=== PATIENT | male | born 1970 ===

== ENCOUNTER 2017-02-25 07:25 | Day surgery (SDC) | payer OTHER ==
[2017-02-23 09:39] VITALS: BMI 25.6
[2017-02-25] MEDS ORDERED: Midazolam 2 MG/2 ML VIAL ONE (09:50)
[2017-02-25] MEDS ORDERED: Propofol 10 mg/ml Inj (20 ML) ONE (09:50)
[2017-02-25] MEDS ORDERED: cefTRIAXone (Rocephin) 1 gm Inj ONE (10:26)
[2017-02-25] MEDS ORDERED: Iohexol 240 200 ML IJ ONE ×2 (10:28)
[2017-02-25] MEDS ORDERED: Lidocaine 2% MPF (5 ml) Inj ONE (10:35)
[2017-02-25] MEDS ORDERED: Lactated Ringer's 1,000 ML IV ONE ×2 (10:36)
[2017-02-25] MEDS ORDERED: cefTRIAXone (Rocephin) 1 gm Inj IVPB ONE (10:45)
--- NOTE | 2017-02-25 11:56 | OP ---
PROCEDURE DATE: 02/25/2017 PREOPERATIVE DIAGNOSES: Right flank pain with renal colic. POSTOPERATIVE DIAGNOSES: Right flank pain with renal colic. PROCEDURE PERFORMED: Cystoscopy with diagnostic ureteroscopy. The patient was placed on the operating table in dorsal lithotomy position, given general anesthesia. The area of the groin was draped and prepped in a sterile manner. Using a ureteroscope, I entered into the bladder atraumatically. The bladder itself appeared normal. There was no evidence of any s tones within the bladder. At this time, I identified the right ureteral orifice and over a floppy ti p guidewire, I advanced the ureteroscope all the way up to the level of the renal pelvis. I looked i nto the middle and upper pole renal calices, did not see any stones. There was no hyperemia of the u reter and ureteropelvic junction. I then, under direct vision, again looked back as I was retracting the ureteroscope and I did not see any stones or stricture in this area. Once this was done, the in strumentation was removed. The patient was taken from the operating room in good condition. Henri Hanna MD cc: 48 TT: 02/25/2017 11:55:46 en
--- NOTE | 2017-02-25 12:06 | DS ---
The patient was admitted today for elective ureteroscopy diagnostic evaluation for right renal colic. He underwent the procedure uneventfully. Postoperatively, the patient is stable. He will be disch arged home. A prescription for Ultracet and Naprosyn was given. Follow up in the office next week marie cristina. Henri Hanna MD cc: 48 TT: 02/25/2017 12:05:00 mn
[2017-02-25 12:26] VITALS: RESP 18
[2017-02-25 13:23] VITALS: BP 142/94; PULSE 76; TEMP 98.4; O2SAT 98
--- NOTE | 2017-02-25 17:50 | RAD ---
PROCEDURE: Fluoroscopy up to 1 hr. HISTORY: CYSTOSCOPY COMPARISON: None TECHNIQUE: Standard protocol for this study/examination. FINDINGS: Submitted images from the current procedure: 1.0 IMPRESSION: Less than 1 hr fluoroscopic time utilized during performance of the procedure.
== END 2017-02-25 14:00 | disposition home or self-care (01) ==
LOC: H.OPSURG 07:25
PROVIDERS: ATTEND Urology
DX: N23 Unspecified renal colic (principal)

== ENCOUNTER 2018-09-22 00:34 | Emergency (ER) | payer OTHER ==
[2018-09-22 00:35] VITALS: BMI 25.6
[2018-09-22] MEDS ORDERED: Sodium Chloride 0.9% 1,000 ML IV STA ×2 (01:13→02:53)
--- NOTE | 2018-09-22 01:29 | ED PDOC ---
HPI: Abdomen Time Seen by Provider: 09/22/18 01:01 Chief Complaint (Nursing): Back Pain Chief Complaint (Provider): abdominal pain History Per: Patient, [employer] (Mika Ruff ED tech/certified teacher resource) History/Exam Limitations: no limitations Onset/Duration Of Symptoms: Days (4) Current Symptoms Are (Timing): Still Present Last Bowel Movement: Today Additional Complaint(s): 48 y/o male presents for evaluation of abdominal pain radiating to back x 1 month, worse x 2 days. Patient seen for pain last week and sent for out patient CT scan; states he followed up with the doctor yesterday and was told the CT results show bilateral stones in the kidney which shouldn't be the reason for his pain so advised him to make an appointment with a surgeon for further evaluation and possible laparscopy. Patient presents to ED due to worsening pain and nausea. Denies fever, nausea/vomiting, chest pain, shortness of breath, palpitations, changes in bowel movements, dysuria, hematuria. Past Medical History Reviewed: Historical Data, Nursing Documentation, Vital Signs Vital Signs: Last Vital Signs Temp 98.1 F 09/22/18 00:49 Pulse 67 09/22/18 00:49 Resp 16 09/22/18 00:49 BP 135/87 09/22/18 00:49 Pulse Ox 100 09/22/18 00:49 - Medical History PMH: Kidney Stones Denies: Chronic Kidney Disease - Surgical History Surgical History: Cholecystectomy - Family History Family History: States: No Known Family Hx - Home Medications Home Medications: Ambulatory Orders Medication Instructions Recorded Ciprofloxacin [Cipro] 500 mg PO BID 02/25/17 Naproxen [Naprosyn] 500 mg PO BID 02/25/17 Tamsulosin [Flomax] 0.4 mg PO DAILY 02/25/17 Tramadol HCl [Ultram] 50 mg PO Q8 PRN 02/25/17 Ciprofloxacin HCl [Cipro] 500 mg PO BID #9 tab 09/22/18 Naproxen [Naprosyn] 500 mg PO Q12 PRN #20 tablet 09/22/18 Ondansetron ODT [Zofran ODT] 4 mg PO Q8 PRN #10 odt 09/22/18 Tamsulosin [Flomax] 0.4 mg PO DAILY #10 cap 09/22/18 oxyCODONE/Acetaminophen [Percocet 1 ea PO Q6 PRN #10 tab 09/22/18 5/325 mg Tab] - Allergies Allergies/Adverse Reactions: Allergies Allergy/AdvReac Type Severity Reaction Status Date / Time No Known Allergies Allergy Verified 09/22/18 00:49 Review of Systems ROS Statement: Except As Marked, All Systems Reviewed And Found Negative Gastrointestinal: Positive for: Abdominal Pain Musculoskeletal: Positive for: Back Pain Physical Exam - Reviewed Nursing Documentation Reviewed: Yes Vital Signs Reviewed: Yes - Physical Exam Appears: Positive for: Well, Non-toxic, In Acute Distress Head Exam: Positive for: ATRAUMATIC, NORMAL INSPECTION, NORMOCEPHALIC Skin: Positive for: Normal Color Eye Exam: Positive for: Normal appearance ENT: Positive for: Normal ENT Inspection Cardiovascular/Chest: Positive for: Regular Rate, Rhythm Respiratory: Positive for: Normal Breath Sounds Gastrointestinal/Abdominal: Positive for: Bowel Sounds, Soft, Tenderness (LLQ, left flank, RLQ, right flank) Back: Positive for: L CVA Tenderness, R CVA Tenderness Extremity: Positive for: Normal ROM Neurologic/Psych: Positive for: Alert, Oriented (x3) - Laboratory Results Result Diagrams: 09/22/18 01:40 09/22/18 01:40 - ECG O2 Sat by Pulse Oximetry: 100 - Progress ED Course And Treament: -cbc -cmp -pt/ptt -urinalysis -urine c&S -IV NS bolus -IV toradol -ct renal protocol CT SCAN OF THE ABDOMEN AND PELVIS WITHOUT ORAL OR IV CONTRAST. CLINICAL INDICATION: Abdominal, bilateral flank pain. TECHNIQUE: Axial and reformatted sagittal and coronal images of the abdomen pelvis obtained without IV contrast administration. COMPARISON: None. FINDINGS: The visualized lung bases are unremarkable. Normal unenhanced liver. Nondilated extrahepatic biliary system. Normal unenhanced spleen. Normal pancreas. Normal bilateral adrenal glands. Bilateral nonobstructing renal stones ranging in size between 3 and 7 mm. Normal size of the right kidney. There is no right renal mass. There is no right hydronephrosis. Normal visualized right ureter. Normal size of the left kidney. There is no left renal mass. 4.2 mm obstructing stone the left ureter at L3 level. Normal visualized stomach. Normal small intestine. Uncomplicated diverticulosis of moderate amount of fecal residue in the colon. The appendix is visualized and appears normal. There is no demonstrated peritoneal fluid. Normal abdominal aorta. Normal inferior vena cava. Normal retroperitoneum. Moderate prostatomegaly. Normal urinary bladder. There is no pelvic mass lesion or lymphadenopathy. There is no pelvic fluid. Normal abdominal wall. Normal osseous structures. IMPRESSION: Bilateral nephrolithiasis. Left ureterolithiasis On re-eval, patient sleeping; upon awakening states pain resolved. Flomax PO, second NS bolus ordered Tolerating PO Patient educated on findings, discharged with rx Percocet, Naproxen, Zofran, Flomax, Cipro Advised follow up with Urology Strainer given with instructions on use Return precautions given Disposition - Clinical Impression Clinical Impression: Ureteral calculus, left, Bilateral kidney stones - Patient ED Disposition Is Patient to be Admitted: No Counseled Patient/Family Regarding: Studies Performed, Diagnosis, Need For Follo wup, Rx Given - Disposition Referrals: Henri Hanna MD [Medical Doctor] - Disposition: Routine/Home Disposition Time: 05:30 Condition: IMPROVED Prescriptions: Ciprofloxacin HCl [Cipro] 500 mg PO BID #9 tab Naproxen [Naprosyn] 500 mg PO Q12 PRN #20 tablet PRN Reason: Pain, Moderate (4-7) Ondansetron ODT [Zofran ODT] 4 mg PO Q8 PRN #10 odt PRN Reason: Nausea/Vomiting oxyCODONE/Acetaminophen [Percocet 5/325 mg Tab] 1 ea PO Q6 PRN #10 tab PRN Reason: Pain, Severe (8-10) Tamsulosin [Flomax] 0.4 mg PO DAILY #10 cap Instructions: Kidney Stones in Adults, Renal Colic Forms: [employer] (Uzbek) Print Language: FRISIAN
[2018-09-22 01:54] LABS: BASO # 0.1 K/uL (0.0-0.2); BASO % 1.2 % (0.0-2.0); EOS # 0.1 K/uL (0.0-0.7); EOS % 1.8 % (0.0-4.0); HEMOGLOBIN 17.6 g/dL (12.0-18.0); LYMPH # 0.8 K/uL (1.0-4.3); MEAN CELL VOLUME 88.9 fl (80.0-94.0); MEAN CORPUSCULAR HEMOGLOBIN 30.2 pg (27.0-31.0); MEAN PLATELET VOLUME 8.1 fl (7.2-11.7); MONO # 0.4 K/uL (0.0-0.8); MONO % 6.6 % (0.0-10.0); NEUT # 4.3 K/uL (1.8-7.0); NEUT % 75.4 % (50.0-75.0); RBC 5.84 Mil/uL (4.40-5.90); RED CELL DISTRIBUTION WIDTH 12.9 % (11.5-14.5); WHITE BLOOD COUNT 5.7 K/uL (4.8-10.8)
[2018-09-22 02:00] LABS: ALB/GLOB RATIO 1.3 (1.0-2.1); ALBUMIN 4.7 g/dL (3.5-5.0); ALT/SGPT 43 U/L (21-72); AST/SGOT 31 U/L (17-59); BLOOD UREA NITROGEN 14 mg/dl (9-20); CALCIUM 10.2 mg/dL (8.4-10.2); GFR NON-AFRICAN AMERICAN > 60; LIPASE 95 U/L (23-300)
[2018-09-22 02:01] LABS: PROTHROMBIN TIME 11.8 Seconds (9.8-13.1)
[2018-09-22 03:49] LABS: URINE BILIRUBIN NEGATIVE (NEGATIVE); URINE BLOOD MODERATE (NEGATIVE); URINE CLARITY CLEAR (Clear); URINE COLOR STRAW (YELLOW); URINE GLUCOSE (UA) NEG (Normal); URINE LEUKOCYTE ESTERASE NEG Leu/uL (Negative); URINE PROTEIN NEGATIVE (NEGATIVE); URINE UROBILINOGEN 0.2-1.0 mg/dL (0.2-1.0)
[2018-09-22 07:14] VITALS: BP 126/73; PULSE 81; RESP 17; TEMP 98.3
--- NOTE | 2018-09-22 11:14 | CT ---
Date of service: 09/22/2018 PROCEDURE: CT Abdomen and Pelvis without intravenous contrast HISTORY: Abdominal and bilateral flank pain. COMPARISON: None. TECHNIQUE: Unenhanced. Neither IV nor oral contrast administered Radiation dose: Total exam DLP = 486.50 mGy-cm. This CT exam was performed using one or more of the following dose reduction techniques: Automated exposure control, adjustment of the mA and/or kV according to patient size, and/or use of iterative reconstruction technique. FINDINGS: LOWER THORAX: Unremarkable. LIVER: Unremarkable. No gross lesion or ductal dilatation. GALLBLADDER AND BILE DUCTS: Unremarkable. PANCREAS: Unremarkable. No gross lesion or ductal dilatation. SPLEEN: Unremarkable. ADRENALS: Unremarkable. No mass. KIDNEYS AND URETERS: Bilateral upper tract calculi none larger than 4 mm Mid ureteral calculus on the left producing proximal dilatation of the left ureter and left renal pelvis. This measured 3 mm. VASCULATURE: Unremarkable. No aortic aneurysm. No atherosclerotic calcification or mural plaque present. BOWEL: Unremarkable. No obstruction. No gross mural thickening. APPENDIX: High density material/debris within the appendix. Negative study for appendicitis. PERITONEUM: Unremarkable. No free fluid. No free air. LYMPH NODES: Unremarkable. No enlarged lymph nodes. BLADDER: Unremarkable. REPRODUCTIVE: Unremarkable. BONES: No acute fracture. OTHER FINDINGS: None. IMPRESSION: Bilateral upper tract calculi left more numerous than right. 3 mm calculus mid left ureter producing proximal hydroureter and hydronephrosis. Concordant results (preliminary interpretation) provided by [facility]. Procedure Completed: 01:56. Preliminary Report: Dictated and Authenticated: 02:50 Final Interpretation: 11:10
[2018-09-26 03:53] VITALS: O2SAT 100
== END 2018-09-22 05:47 | disposition home or self-care (01) ==
LOC: H.ER 00:34
DX: N20.1 Calculus of ureter (principal); N13.2 Hydronephrosis with renal and ureteral calculous obstruction; Z79.899 Other long term (current) drug therapy; Z87.442 Personal history of urinary calculi
CPT/HCPCS: 74176; 80053; 81003; 83690; 85025; 85610; 85730; 87086; 96361; 96374; 99284; J1885; J7030